=== PATIENT | female | born 2005 | race Caucasian/White ===

== ENCOUNTER 2024-01-09 13:08 | Emergency (ER) | payer OTHER, SELFPAY ==
--- NOTE | ~2024-01-09 | XR_ITS ---
EXAMINATION: XR CHEST CLINICAL INFORMATION: Cough and shortness of breath COMPARISON: None available. TECHNIQUE: 2 views of the chest were obtained. FINDINGS: No significant abnormality is noted involving the heart, lungs, mediastinum, bony thorax or soft tissues. XR/XR chest 2V IMPRESSION: Unremarkable examination. Electronically signed by: Tabatha Roth MD 01/09/2024 04:35 PM EDT RP
[2024-01-09 13:36] VITALS: BP 99/60; PULSE 85; RESP 18; TEMP 36.9; O2SAT 95; BMI 16.5
--- NOTE | 2024-01-09 13:36 | ED_ITS ---
HPI - URI/Sore Throat General Chief Complaint: Upper Respiratory Symptoms Stated Complaint: Pneumonia? Time Seen by Provider: 01/09/24 14:42 Source: patient Mode of arrival: ambulatory Limitations: no limitations History of Present Illness ED Provider: MATHEUS PARK HPI Narrative: 18-year-old female with pmhx significant for asthma (as a child) presents to the ED today for evaluation of chest heaviness, dyspnea, cough productive of yellow/green sputum, headaches and poor appetite x4 days. Symptoms have been progressively worsening. Denies fevers, chills, sore throat, hemoptysis, abd ominal pain, nausea or vomiting, diarrhea, dysuria, hematuria, flank pain, vaginal discharge. No known sick contacts. No recent travel outside the [place]. Related Data Previous Rx's ?Medication ?Instructions ?Recorded albuterol sulfate 90 mcg/actuation 2 puff inhalation Q20M PRN 01/09/24 aerosol inhaler (Ventolin HFA) shortness of breath or wheezing #8.5 grams azithromycin 250 mg tablet See Rx Instructions PO .COMPLEX #6 01/09/24 tabs benzonatate 100 mg capsule 100 mg PO BID PRN cough #20 caps 01/09/24 prednisone 20 mg tablet 40 mg (2 x 20 mg) PO DAILY 4 days 01/09/24 #8 tabs Allergies Allergy/AdvReac Type Severity Reaction Status Date / Time No Known Allergies Allergy Verified 01/09/24 13:39 Review of Systems Review of Systems: Constitutional: No fever, chills, fatigue, night sweats, weight changes ENT/Mouth: No ear pain, hearing loss, nasal congestion, sinus pain, rhinorrhea, sore throat Eyes: No eye pain, swelling, redness, vision changes, discharge Cardio: No chest pain, palpitations, SOLER, orthopnea, peripheral edema Pulm: No SOB, cwheezing, hemoptysis, +dyspnea, +cough w/ sputum GI: No nausea, vomiting, hematemesis, abdominal pain, diarrhea, constipation, hematochezia, melena : No irregular bleeding, dysuria, frequency, urgency, hesitancy, hematuria, flank pain, urinary flow changes, urinary incontinence or retention MSK: No back pain, neck pain, joint pain, myalgias Skin: No lesions, rashes Neuro: No weakness, numbness, paresthesias, LOC, dizziness, +headache Psych: No anxiety/panic, depression, SI/HI, AH/VH All other systems reviewed and are negative. [facility] Past Medical History Attestation statement: The following information was validated with the patient. Source: old records reviewed and nursing notes reviewed Social History Social History Advance Directives: No Advance Directives Information Provided: Yes Do you have a plan to hurt others: No Plan Physical Exam Vital Signs: Vital Signs: Last Vital Signs Temp 98.5 F 01/09/24 17:08 Pulse 113 H 01/09/24 17:08 Resp 18 01/09/24 17:08 BP 116/61 01/09/24 17:08 Pulse Ox 94 01/09/24 17:08 O2 Del Method Room Air 01/09/24 17:08 BMI result Body Mass Index 16.5 vitals stable, afebrile General: appears fatigued Skin: Warm, dry, intact. No rashes or lesions. Head: Normocephalic, atraumatic. EENT: Hearing is intact b/l. Conjunctiva clear. Sclera is anicteric. PERRLA. EOM intact. Moist mucous membranes.? Neck: Supple without LAD. FROM. Trachea midline.? Cardiac: Chest wall symmetric. RRR. Lungs: Normal respiratory effort without accessory muscle use. rhonchi and expiratory wheezes to bilateral lower bases (R>L). speaking in clear sentences. Abdomen: Soft, non-tender, non-distended. No rebound tenderness or guarding. Positive BS x4. Back: No midline spinous or paraspinal tenderness. No step off deformity. Ext: Upper and lower extremities atraumatic, without tenderness, deformity, swelling or erythema. Full ROM throughout. Neuro: AOx3. Normal speech. CN 2-12 grossly intact. Strength 5/5 intact throughout. No saddle anesthesia. Sensation intact to light touch. NV intact distally. Reflexes 2+ bilaterally. Ambulating with steady gait. Psych: Appropriate mood and affect. Responds appropriately to questions. Course Course Course Narrative: This is an RME performed by Brenda Malone [employer]: Additional HPI, ROS, PE not included below will be deferred to primary provider. Patient is a 18-year-old female who presents to the emergency department Reports chest heaviness, having a difficult time breathing, productive cough with mucus, headaches, poor appetite. Symptom onset was 4 days ago, progressively worsening. Denies associated fevers or chills Plan: Lung sounds with rhonchi, mild expiratory wheezing in the bilateral lower bases. Speaking clear full sentences. Appears fatigued. Plan: Viral serologies, CXR Reevaluation(s) Reevaluation #1: 1650-- Patient received updraft by RT along with IV solumedrol with improvement in breathing. on re-evaluation, lungs clear to auscultation. continued cough noted. guaefenesin ordered. she has tested negative for covid/ flu/rsv. Chest x- ray without consolidation or infiltrate. Given yellow/green sputum production, will send patient home with Z-Brandin along with prednisone, Tessalon Perles and albuterol inhaler for suspected bronchitis. Patient has remained stable throughout ED visit today. Discussed worrisome signs and symptoms and when to return to the ED. All questions answered at this time. Patient is agreeable with disposition and stable for discharge. Medications Administered Discontinued Medications Generic Name Dose Route Start Last Admin Trade Name Freq PRN Reason Stop Dose Admin Albuterol Sulfate 2.5 mg/ 0 mg 01/09/24 15:26 01/09/24 15:29 Albuterol/Ipratropium 3 ml INHALE 01/09/24 15:27 1 dose ONCE ONE Administration Guaifenesin 10 ml 01/09/24 16:04 01/09/24 16:14 Guaifenesin 200 Mg/10 Ml 10 Ml Liquid PO 01/09/24 16:05 10 ml ONCE ONE Administration Methylprednisolone Sodium Succinate 80 mg 01/09/24 15:05 01/09/24 15:58 Methylprednisolone Sod Succ 125 Mg/2 Ml Vial IVPUSH 01/09/24 15:06 80 mg ONCE ONE Administration Medical Decision Making Medical Decision Making MDM Narrative: 18-year-old female with pmhx significant for asthma (as a child) presents to the ED today for evaluation of chest heaviness, dyspnea, cough productive of yellow/green sputum, headaches and poor appetite x4 days. VSS. Afebrile. Not hypoxic. Appears fatigued. In no acute distress. On exam, normal respiratory effort without accessory muscle use. no tripoding. actively coughing. rhonchi and expiratory wheezes to bilateral lower bases (R>L). speaking in clear sentences. skin w/d/i, no rashes. Differential diagnosis includes asthma exacerbation, pneumonia, bronchitis, viral syndrome. PERC 0. PE unlikely. Plan for viral swabs, CXR, breathing treatment/ steroids, and re-evaluation. Differential Diagnosis Differential Diagnoses: The differential diagnosis associated with the presentation includes as above. Admission/Observation not indicated. Lab Data MDM Lab Attestation statement: I reviewed the patient's lab results. As above Labs: Lab Results 01/09/24 Range/Units 14:25 Influenza Type A (PCR) NEGATIVE (Negative) Influenza Type B (PCR) NEGATIVE (Negative) RSV RNA Qual (PCR) NEGATIVE (Negative) SARS-CoV-2 RNA (RT-PCR) NEGATIVE (Negative) Independent Interpretation I performed an independent interpretation of an: Plain X-Ray Interpretation: Chest x-ray without focal consolidation or infiltrate, agree with radiologist's interpretation. Radiology Impression Discussion of test interpretation with radiology: I have reviewed the radiologist's reading. Radiologist Impression: EXAMINATION: XR CHEST CLINICAL INFORMATION: Cough and shortness of breath COMPARISON: None available. TECHNIQUE: 2 views of the chest were obtained. FINDINGS: No significant abnormality is noted involving the heart, lungs, mediastinum, bony thorax or soft tissues. XR/XR chest 2V IMPRESSION: Unremarkable examination. Electronically signed by: Tabatha Roth MD 01/09/2024 04:35 PM EDT RP Prescription Management I considered prescription management with: Antibiotic (Azithromycin) and Other (Tessalon Perles, prednisone, albuterol) Chronic Conditions Patient?s care impacted by: Other (Asthma) Discharge Plan Discharge Clinical Impression: Bronchitis, Viral infection Patient Disposition: Home, Self-Care Instructions: Acute Bronchitis (ED) Additional Instructions: Your chest x-ray was unremarkable, there is no evidence for pneumonia which is reassuring. ? You tested negative for covid, flu, and rsv.? Your symptoms and exam are consistent with acute bronchitis which is inflammation and infection of your breathing tubes. Take prednisone 20 mg pills, 2 pills once a day for 4 days starting tomorrow.? This is an anti-inflammatory medication which will reduce the inflammation in your breathing tubes. ? While you?are taking prednisone, do not take any NSAIDs (Motrin, Advil, ibuprofen, Aleve, naproxen). Take doxycycline 250 mg pills, 2 pills today, and 1 pill for the next 4 days. Tessalon Perles (benzonate) have been sent to your pharmacy for cough. Albuterol inhaler has been sent to your pharmacy. Respiratory therapy educated you on how to use this. Follow-up with your doctor this week. Return to the ED with new or worsening symptoms. In the case of an emergency call 911. Prescriptions: New azithromycin 250 mg tablet See Rx Instructions .ROUTE .COMPLEX Qty: 6 0RF Rx Instructions: For 250 mg dose pack: take 500 mg today (day 1), then 250 mg for 4 days (days 2-5) prednisone 20 mg tablet 40 mg PO DAILY 4 Days Qty: 8 0RF benzonatate 100 mg capsule 100 mg PO BID PRN (Reason: cough) Qty: 20 0RF albuterol sulfate [Ventolin HFA] 90 mcg/actuation HFA aerosol inhaler 2 puff inhalation Q20M PRN (Reason: shortness of breath or wheezing) Qty: 8.5 0RF Referrals: [facility] [place] Family Medicine [Provider Group] [facility] [place] [facility], [place] [Provider Group] [facility] [place] [facility],[place] [Provider Group] Stand Alone Forms: Work/School Release Interventions: ED Discharge Assessment Last Done: 01/09/24 17:08 Discharge Date/Time: 01/09/24 17:09 Print Language: Haitian
[2024-01-09 15:19] VITALS: BP 111/59; PULSE 98; RESP 14; TEMP 37.1
[2024-01-09 15:23] LABS: Influenza A PCR NEGATIVE (Negative); Influenza B PCR NEGATIVE (Negative); Resp Syncy Virus RNA Qual PCR NEGATIVE (Negative); SARS COV2 PCR INHOUSE NEGATIVE (Negative)
[2024-01-09 15:29] VITALS: PULSE 94; RESP 18; O2SAT 97
[2024-01-09] MEDS: Albuterol Sulfate 2.5 MG, Albuterol/Iprat 2.5/0.5MG 3 ML 3 ML INHALE (15:29)
[2024-01-09] MEDS: methylPREDNISolone Sod Succ 125 MG/2 ML VIAL 80 MG IVPUSH (15:58)
--- NOTE | 2024-01-09 16:03 | PC.NURSE ---
iv inserted, pt medicated per order
[2024-01-09] MEDS: guaiFENesin 200 MG/10 ML 10 ML LIQUID PO (16:14)
--- NOTE | 2024-01-09 16:15 | PC.NURSE ---
pt medicated with cough medicine per order, pt tearful at this time
[2024-01-09 17:08] VITALS: BP 116/61; PULSE 113; RESP 18; TEMP 36.9; O2SAT 94
== END 2024-01-09 17:09 | disposition home or self-care (01) ==
PROVIDERS: Nurse Practitioner Family; Emergency Provider Emergency Medicine
DX: B34.9 Viral infection, unspecified (principal); J40 Bronchitis, not specified as acute or chronic; Z03.818 Encounter for observation for suspected exposure to other biological agents ruled out; Z79.899 Other long term (current) drug therapy
CPT/HCPCS: 0241U; 71046; 94640; 96374; 99284; J2919